=== PATIENT | female | born 1950 | race Caucasian/White ===

== ENCOUNTER → 2016-11-12 | Day surgery (SDC) | payer MEDICARE, MEDICAID ==
--- NOTE | 2016-11-11 08:25 | MH ---
cc: MANJIT WEINSTEIN DATE OF ADMISSION 11/12/2016 DATE OF 1950 INDICATIONS Right serous otitis HISTORY This is a 66-year-old female with conductive hearing loss, right serous otitis. She has had medical treatment to include topical steroids, but has not improved and continues to have a blocked ear. Nasal endoscopy is not showing any nasopharyngeal lesions. She is to undergo a right myringotomy and T-tube under general anesthesia. She would not tolerate this under local. PAST MEDICAL HISTORY CURRENT MEDICATIONS 1. Carvedilol 2. Dexilant 3. Singulair 4. Plaquenil 5. Simvastatin 6. Xarelto ALLERGIES TO MEDICATIONS DOXYCYCLINE AND ERYTHROMYCIN PHYSICAL EXAM This is a well-developed, well-nourished female in no apparent distress. HEAD, EYES, EARS, NOSE, AND THROAT: Normocephalic, atraumatic. Extraocular motions intact. External ear canals clear. Right tympanic membrane retracted with serous fluid. Left tympanic membrane shows no retraction or fluid level. Nasal exam shows no lesions. Lips, oral mucosa and oropharynx show no mass. CHEST: Clear to auscultation. HEART: Regular rate. ABDOMEN: Soft. EXTREMITIES: No lesion. NEUROLOGIC: Exam nonfocal. ASSESSMENT This is a 66-year-old female with right serous otitis. She is to undergo right myringotomy and tube under general anesthesia. The risks and benefits discussed with the patient. The risks include, but are not limited to those of anesthesia, bleeding, unfavorable scarring, TM perforation, early tube extrusion, tube retention requiring removal, tube otorrhea requiring removal, early tube extrusion, hearing loss, cholesteatoma. The patient states she has and accepts the risks of the procedure. MD SHALA Laws/ANA LAURA /7:42 AM /8:17 AM
[~2016-11-12] VITALS: Ht 147.3 cm; Wt 78.3 kg
[~2016-11-12] MED LIST: ACET-534 PO; ACETAMINOPHEN 1000 MG/100 ML VIAL IV ONE; ACETAMINOPHEN/CODEINE 300 MG/30 MG TAB PO PRN; ALEN1TAB48 PO; ASPI81CH CHEW; CARV3.125 PO; CHLORHEXIDINE GLUCONATE 2 % 1 PACK (2 CLOTHS) TOPICAL PRN; CHOL1CAP34 PO; CITA20TA4 PO; DEPA500T3 PO; DEXI60CA2 PO; DO NOT ADM ANY ANTICOAGULANT DRUGS PRN; FAMOTIDINE 20 MG/2 ML VIAL ONE; FIOR30CA12 PO; GABA300C5 PO; HYDROmorphone HCL PF 2 MG/ML VIAL ONE; INSULIN HUMAN REGULAR 1,000 UNITS/10 ML VIAL SQ PRN; LACTATED RINGER'S 1000 ML IV PRN; METOPROLOL TARTRATE 25 MG TAB PO PRN; MIDAZOLAM HCL 2 MG/2 ML VIAL ONE; MONT10TA4 PO; MORPHINE SULFATE 4 MG/ML INJ IV PRN; OFLOXACIN 0.3% OPTH SOLN 5 ML BTL RIGHT EAR ONE; ONDANSETRON HCL 4 MG/2 ML VIAL IV PRN; ONDANSETRON HCL 4 MG/2 ML VIAL IV PUSH ONE; PLAQ200T PO; POTA10CA PO; POVIDONE IODINE 5% (ANTISEPSIS KIT) 4 APPLICATIONS EACH NARE PRN; PROM25TA10 PO; PROPOFOL 200 MG/20 ML AMP IV ONE; SODIUM CHLORID 0.9% 500 ML IV PRN; XARE20TA PO; ZOCO40TA PO
[2016-11-12 09:49] VITALS: BP 123/74; PULSE 81; RESP 20; TEMP 98.5; O2SAT 97
--- NOTE | 2016-11-12 09:53 | MP ---
cc: MANJIT WEINSTEIN M.D. DATE OF SURGERY: 11/12/2016 DATE OF : 1950 INDICATIONS This is a 66-year-old female with right serous otitis. She has not responded to medical therapy, has conductive hearing loss. She is to undergo right myringotomy and T-tube under general anesthesia. She could not tolerate a tube in the office. PREOPERATIVE DIAGNOSIS Otitis media on the right, serous otitis, conductive hearing loss. POSTOPERATIVE DIAGNOSIS Otitis media on the right, serous otitis, conductive hearing loss. PROCEDURE Right myringotomy and T-tube under general anesthesia. SUMMARY The patient was brought to the operating room and placed in supine position, successfully placed under general anesthesia and prepared in the usual fashion for this procedure. The ear was examined under the microscope. A myringotomy incision was made inferiorly. Serous fluid was suctioned from the middle ear and a pressure equalization tube was placed without complication. Ofloxacin drops were applied. The patient tolerated the procedure well, was awakened and taken to Recovery in stable condition. MD SHALA Laws/EDY /9:33 AM /9:42 AM
[2016-11-12 10:09] LABS: AUTOMATED NEUTROPHIL # 3.4 TH/MM3 (1.8-7.7); BASOPHIL # 0.1 TH/MM3 (0-0.2); EOSINOPHIL # 1.2 TH/MM3 (0-0.4); EOSINOPHIL % 16.1 % (0.0-4.0); HEMATOCRIT 35.4 % (35.0-46.0); HEMO FLAGS DIFF FINAL; LYMPH % 29.6 % (9.0-44.0); LYMPHOCYTE # 2.3 TH/MM3 (1.0-4.8); MEAN CELL VOLUME 79.6 FL (80.0-100.0); MEAN CORPUSCULAR HEMOGLOBIN 25.8 PG (27.0-34.0); MEAN CORPUSCULAR HGB CONC 32.5 % (32.0-36.0); MONO % 8.6 % (0.0-8.0); NEUT % 44.7 % (16.0-70.0); PLATELET COUNT 249 TH/MM3 (150-450); RED BLOOD COUNT 4.45 MIL/MM3 (4.00-5.30); RED CELL DISTRIBUTION WIDTH 17.4 % (11.6-17.2); WHITE BLOOD COUNT 7.6 TH/MM3 (4.0-11.0)
[2016-11-12 12:52] VITALS: BP 106/59; PULSE 60; RESP 18; TEMP 98; O2SAT 94
--- NOTE | 2016-11-12 14:46 | EKG ---
Date Performed: 11/12/2016 Time Performed: 08:59:44 PTAGE: 66 years EKG: Sinus rhythm LOW QRS VOLTAGE IN PRECORDIAL LEADS MINIMAL VOLTAGE CRITERIA FOR LVH, CONSIDER NORMAL VARIANT MINIMA L ST DEPRESSION BORDERLINE ECG PREVIOUS TRACING : 06/04/2014 14.07 Compared to prior tracing no significant change DOCTOR: Tulio Corley Interpretating Date/Time 11/12/2016 14:45:07
== END | disposition home or self-care (01) ==
LOC: HSDC 08:21
PROVIDERS: ATTEND Specialist
DX: H65.91 Unspecified nonsuppurative otitis media, right ear (principal); I10 Essential (primary) hypertension; E78.5 Hyperlipidemia, unspecified; I73.9 Peripheral vascular disease, unspecified; G62.9 Polyneuropathy, unspecified; K21.9 Gastro-esophageal reflux disease without esophagitis; F32.9 Major depressive disorder, single episode, unspecified; J44.9 Chronic obstructive pulmonary disease, unspecified; Z88.1 Allergy status to other antibiotic agents; Z87.891 Personal history of nicotine dependence
CPT/HCPCS: 69436; 85025; 93005; J0131; J1170; J1642; J2250; J2405; J7120

== ENCOUNTER 2017-09-29 15:52 | Emergency (ER) | payer OTHER, MEDICARE ==
[~2017-09-29] VITALS: Ht 147.3 cm; Wt 78.0 kg
[~2017-09-29 15:52] MED LIST changes: -ACETAMINOPHEN 1000 MG/100 ML VIAL IV ONE; -ACETAMINOPHEN/CODEINE 300 MG/30 MG TAB PO PRN; +ASPI-516 CHEW; -ASPI81CH CHEW; -CHLORHEXIDINE GLUCONATE 2 % 1 PACK (2 CLOTHS) TOPICAL PRN; -DEXI60CA2 PO; +DEXI60CA3 PO; -DO NOT ADM ANY ANTICOAGULANT DRUGS PRN; -FAMOTIDINE 20 MG/2 ML VIAL ONE; -HYDROmorphone HCL PF 2 MG/ML VIAL ONE; -INSULIN HUMAN REGULAR 1,000 UNITS/10 ML VIAL SQ PRN; -LACTATED RINGER'S 1000 ML IV PRN; -METOPROLOL TARTRATE 25 MG TAB PO PRN; -MIDAZOLAM HCL 2 MG/2 ML VIAL ONE; -MORPHINE SULFATE 4 MG/ML INJ IV PRN; -OFLOXACIN 0.3% OPTH SOLN 5 ML BTL RIGHT EAR ONE; -ONDANSETRON HCL 4 MG/2 ML VIAL IV PRN; -ONDANSETRON HCL 4 MG/2 ML VIAL IV PUSH ONE; -PLAQ200T PO; -POTA10CA PO; -POVIDONE IODINE 5% (ANTISEPSIS KIT) 4 APPLICATIONS EACH NARE PRN; -PROPOFOL 200 MG/20 ML AMP IV ONE; -SODIUM CHLORID 0.9% 500 ML IV PRN
[2017-09-29 15:57] VITALS: BP 130/82; PULSE 99; RESP 16; TEMP 99.3; O2SAT 98
[2017-09-29] MEDS ORDERED: GAMM1INJ SQ (16:22)
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
== END 2017-09-29 18:16 | disposition home or self-care (01) ==
LOC: PHED 15:52
DX: S06.0X0A Concussion without loss of consciousness, initial encounter (principal); V44.9XXA Unspecified car occupant injured in collision with heavy transport vehicle or bus in traffic accident, initial encounter
CPT/HCPCS: 70450; 72072; 72125; 99283